=== PATIENT | male | born 1940 | race Caucasian/White ===

== ENCOUNTER 2018-01-27 13:10 | Emergency (ER) | payer OTHER ==
[~2018-01-27] VITALS: Ht 167.6 cm; Wt 65.9 kg
[~2018-01-27 13:10] MED LIST: ALPRAZOLAM0.25 M2 PO; Aspirin E.C. PO; COLACE100 MG PO; COUMADIN5 MG PO; Coumadin,Jantoven PO; ENALAPRIL MALEA10 MG PO; GLYBURIDE-METF1 EAC1 PO; LIPITOR40 MG PO; Lovenox SC; OMEPRAZOLE40 M1 PO; TRAZODONE HCL100 MG PO; TRAZODONE HCL50 MG PO; Tears Naturale II,Ar BOTH EYES; VITAMIN D400 UNIT PO
[2018-01-27 14:50] LABS: HEMATOCRIT 35.7 % (38.0-50.0); HEMOGLOBIN 13.2 G/DL (12.5-16.6); MCH 32.8 PG (29.0-34.0); MCV 88.8 FL (86-99); PLATELET COUNT 276 K/uL (156-360); RBC DIS.WIDTH-CV 13.2 % (11.8-14.6); RBC DIS.WIDTH-SD 43.1 % (39-53); RED BLOOD COUNT 4.02 M/uL (4.00-5.50); WHITE BLOOD COUNT 9.1 K/uL (4.1-10.2)
[2018-01-27 14:59] LABS: ALBUMIN 3.6 g/dL (3.2-4.8); CHLORIDE 106 mEq/L (99-109); POTASSIUM 4.4 mEq/L (3.7-5.4); SODIUM 140 mEq/L (136-147)
[2018-01-27 15:01] LABS: GLUCOSE 188 mg/dL (70-99)
[2018-01-27 15:02] LABS: TOTAL PROTEIN 6.5 g/dL (6.4-8.3)
[2018-01-27 15:03] LABS: TOTAL BILIRUBIN 0.5 mg/dL (0.0-1.0)
[2018-01-27 15:05] LABS: ALKALINE PHOSPHATASE 64 IU/L (3-129); GFR ESTIMATE (CALCULATED) 35 mL/min/ (58.99-99999)
[2018-01-27 15:06] LABS: UREA NITROGEN (BUN) 41 mg/dL (9-23)
[2018-01-27 15:07] LABS: AST (GOT) 122 IU/L (2-34)
[2018-01-27 15:08] LABS: ALT (GPT) 110 IU/L (3-49)
[2018-01-27 16:01] LABS: D-DIMER ELISA < 150.00 ng/mLDDU (<230)
[2018-01-27 16:10] LABS: INTER. NORMALIZED RATIO 10.3
[2018-01-27 17:29] VITALS: BP 157/92
== END 2018-01-27 17:30 | disposition home or self-care (01) ==
LOC: EME 13:10
PROVIDERS: Family Medicine
DX: R60.0 Localized edema (principal); R79.1 Abnormal coagulation profile; R47.81 Slurred speech; R53.1 Weakness; M54.9 Dorsalgia, unspecified; S40.812A Abrasion of left upper arm, initial encounter; M25.532 Pain in left wrist; W18.11XA Fall from or off toilet without subsequent striking against object, initial encounter; Z85.51 Personal history of malignant neoplasm of bladder; Z79.01 Long term (current) use of anticoagulants; I69.354 Hemiplegia and hemiparesis following cerebral infarction affecting left non-dominant side; I10 Essential (primary) hypertension; E78.5 Hyperlipidemia, unspecified; E11.9 Type 2 diabetes mellitus without complications; Z79.84 Long term (current) use of oral hypoglycemic drugs
CPT/HCPCS: 73110; 80053; 85027; 85379; 85610; 93971; 99281; 99285